=== PATIENT | female | born 1970 | race Caucasian/White ===

== ENCOUNTER 2016-12-14 11:50 | Inpatient (IN) | payer BC ==
--- NOTE | ~2016-12-14 | OR ---
Unit #: [id number] #: [id number] Patient: JUANCARLOS OLEA [id number] [facility]. [place], [place] [address] [id number] MR#: [id number] NAME: JUANCARLOS OLEA ROOM: 475 Date of Procedure: 12/14/2016 Admission Date: 12/14/2016 Surgeon: Quinten Solorio Jr., M.D. : 1970 Attending Physician: Silver Tolliver M.D. Primary Care Physician: Carri Arellano OPERATIVE REPORT INDICATION FOR PROCEDURE The patient is a 46-year-old white female, who developed a severe mid abdominal pain secondary to incarcerated ventral hernia yesterday. She has had a related small-bowel obstruction with it, has an obvious small bowel loop up within it on CT and she is brought to the operating room at this time for reduction and repair, possibly laparoscopic versus open. The patient has had a previous lap band. PREOPERATIVE DIAGNOSES Incarcerated ventral hernia with small-bowel obstruction. POSTOPERATIVE DIAGNOSES Incarcerated ventral hernia with small-bowel obstruction, noting several adhesive bands. ANESTHESIA General with endotracheal intubation and 0.5% Marcaine with epinephrine locally at the port sites. [employer] APPRENTICE Donte Montanez M.D. PROCEDURES PERFORMED Diagnostic laparoscopy, laparoscopic lysis of adhesions, laparoscopic reduction of ventral incarcerated hernia with ventral hernia repair using a 6 x 4 inch Ventralight mesh. Absorbable tacks were used. DESCRIPTION OF PROCEDURE The patient was positioned in supine position. After being anesthetized and intubated, she was prepped and draped in routine fashion for laparoscopic ventral hernia repair. A small incision was made in the left lateral abdominal wall area. A 5-mm Optiview was introduced in the abdomen followed by the camera. There was no evidence of any injury related to introduction of the Optiview. Brief intra-abdominal exploration was carried out after the abdomen was inflated with CO2 gas. The patient was noted to have some adhesions. The lap band tubing was noted and there was an incarcerated hernia with loop of small bowel as well as omentum up within it. A 5-mm port was placed in the left lower quadrant abdominal wall area and a 5 mm in the right upper quadrant abdominal wall area laterally and 11-mm port in the right lower quadrant abdominal wall area. Using grasping clamps, the hernia was gently reduced with the bowel loop being brought out first followed by the omentum with Unit #: [id number] #: [id number] Patient: YOUNG,JUANCARLOS no evidence of any injury to the bowel. There was no evidence of any necrosis or ischemia. After the hernia was reduced and all tissue was removed from the hernia sac itself, the abdominal wall was checked, there was no evidence of any need to take down the falciform ligament. A 6 x 4 inch mesh was used to destin the outside of the abdomen. Four small incisions were made 1 mm in length for the placement of the graft and the graft was then tacked in 4 corners with Vicryl sutures soaked in antibiotic solution, and then rolled up and placed intraabdominal, brought up against the anterior abdominal wall using the Endo Close needle. Once this was in place, it was secured with SecureStrap all the way around with no evidence of any problems. The stitches holding the graft up were then lysed. Hemostasis was checked for and noted to be adequate with no evidence of any ongoing bleeding, minimal amount of blood within the abdomen. After checking again noting good placement of the graft with good security of it against the abdominal wall, the CO2 was expressed from the abdomen. The fascia in the larger port site was approximated with the neoClose technique and the port sites were then injected with 0.5% Marcaine with epinephrine locally. Ports removed. There was no evidence of any bleeding from the port sites. The wounds were irrigated. After hemostasis achieved with Bovie cautery, skin edges were approximated with stainless-steel skin clips and skin stapling device. Sterile dressings were applied externally. Estimated blood loss less than 100 mL. The patient received less than 1500 mL crystalloid solution during the procedure. Sponges and instrument counts were correct x3. No drains used. No complications. The patient was taken to the recovery room with stable vital signs in satisfactory condition. Dictated by... Quinten Solorio Jr., M.D. JMB/jim TD: 12/14/2016 22:17 JOB #: [id number] OPERATIVE REPORT Page 1 of 1 X Quinten Solorio MD X PROCEDURE OPERATIVE NOTE
--- NOTE | ~2016-12-14 | HP ---
Unit #: [id number] #: [id number] Patient: JUANCARLOS OLEA [id number] [facility]. [place], [place] [address] [id number] MR#: [id number] NAME: JUANCARLOS OLEA ROOM: [facility] Age: 46 Sex: F Admission Date: 12/14/2016 : 1970 Attending Physician: Silver Tolliver M.D. Primary Care Physician: Carri Arellano HISTORY AND PHYSICAL CHIEF COMPLAINT Nausea with abdominal pain. HISTORY OF PRESENT ILLNESS The patient is a 46-year-old white female who is in normal good health up until yesterday, when at home she developed crampy abdominal pain with severe pain in the area of her umbilical hernia. She was noted to have a knot in this area that was tender and she presented to the emergency room in her hometown. She has had a past history of having a lap band in 08/[address] Melendez. She has had no fever or chills and no other specific symptoms, except for the pain and nausea. She was seen in the emergency room in her hometown and CT revealed evidence of small bowel obstruction with an incarcerated umbilical hernia. According to her, she has had an umbilical hernia for at least several years. PAST MEDICAL HISTORY SERIOUS ILLNESSES: She has had a history of sleep apnea, hypertension, diabetes, which is borderline, hyperlipidemia, anxiety, depression, and panic attacks and back problems with back pain. PAST SURGICAL HISTORY She has had a hysterectomy, tonsillectomy and D and C. She has had no apparently problems related to her surgery. MEDICATIONS She is on Valium, Zoloft, Estrace, ibuprofen, Claritin, bariatric vitamin. ALLERGIES Hydrocodone, states this causes itching with a rash. TRANSFUSIONS None in the past. FAMILY HISTORY Noncontributory. SOCIAL HISTORY The patient is , lives at home with her family. Has a normal good appetite. No recent weight change. He is a nonsmoker and nondrinker. Immunizations are up-to-date. REVIEW OF SYSTEMS Twelve system review has been performed, which is nonremarkable except for those noted in the present illness. Unit #: [id number] #: [id number] Patient: JUANCARLOS OLEA PHYSICAL EXAMINATION VITAL SIGNS: Temperature on admission, the patient is afebrile. Vital signs are normal. Pulses 74. GENERAL DESCRIPTION: Patient is a well developed, well nourished, 46-year-old white female in no acute distress. HEENT: Not remarkable. NECK: Supple. CHEST: There is equal bilateral expansion with bilateral equal breath sounds. LUNGS: Clear bilaterally. HEART: A regular rhythm without murmurs or gallops. There is no evidence of cardiomegaly clinically. ABDOMEN: Soft. There is an obvious incarcerated umbilical hernia, which is moderately tender. No palpable masses. Otherwise no organomegaly. No ascites and no other hernias except for the hernia in the umbilical area. EXTREMITIES: Will full range of motion without limitation. There is no evidence of peripheral edema. BACK: There is no CVA tenderness. NEUROLOGIC: Grossly intact. IMPRESSION Patient has an incarcerated ventral hernia, probably umbilical with small bowel obstruction related to it. No evidence of any necrotic small bowel. Plan will be to go head with a diagnostic laparoscopy, laparoscopic reduction and hernia possible and laparoscopic ventral hernia repair versus open. The patient understands the procedure including the risks, including that of recurrence, infection, intra-abdominal organ injury, bleeding and consents. Dictated by Quinten Solorio Jr., MThiago. PAUL/marco TD: 12/14/2016 12:33 JOB #: [id number] HISTORY AND PHYSICAL Page 1 of 1 X Quinten Solorio MD X HISTORY AND PHYSICAL
--- NOTE | ~2016-12-14 | DS ---
Unit #: [id number] #: [id number] Patient: JUANCARLOS OLEA [id number] [facility]. [place], [place] [address] [id number] I MR#: [id number] NAME: JUANCARLOS OLEA ROOM: [facility] Age: 46 Sex: F Admission Date: 12/14/2016 : 1970 Discharge Date: 12/16/2016 Attending Physician: Silver Tolliver M.D. Primary Care Physician: Carri Arellano DISCHARGE SUMMARY ADMITTING AND FINAL DIAGNOSIS Incarcerated ventral hernia with small bowel obstruction. SECONDARY DIAGNOSIS Status post lap band. OPERATIONS ON THIS ADMISSION Laparoscopic reduction and hernia repair of her ventral hernia. BRIEF SUMMARY The patient is a 46-year-old white female who underwent lap band surgery approximately three to four months ago. She developed severe abdominal pain with nausea, vomiting and an incarcerated hernia just prior to coming to the emergency room and CT scan revealed evidence of small bowel obstruction from a hernia. On examination, she was noted to have a firm incarcerated ventral hernia near the umbilical region. Laboratory values are basically normal. HOSPITAL COURSE The patient was taken to the operating room and underwent reduction and repair of her ventral hernia. Postop, the first 24 hours she had significant pain requiring IV pain meds but now this is improved. She is presently just under two days postop. She is ambulating well, tolerating a regular diet. No nausea, no vomiting and is ready for discharge in satisfactory condition. The plan will be to discharge the patient home. She will be on normal activity except for no heavy lifting more than 5-10 pounds. She will be on a regular home diet. She will be given Percocet 10 mg/325, one or two p.o. q.4-6 hours p.r.n. pain and be keeping her wounds clean and dry and calling the office for her followup appointment in approximately ten days. She will be resuming her home medications. Dictated by... Quinten Solorio Jr., M.D. PAUL/ryan TD: 12/19/2016 06:45 JOB #: [id number] Unit #: [id number] #: [id number] Patient: JUANCARLOS OLEA DISCHARGE SUMMARY Page 1 of 1 X Quinten Solorio MD DISCHARGE SUMMARY
[~2016-12-14 11:50] MED LIST: B-1100 MG PO; BARIATRIC VITAMIN PO; CLARITIN10 M3 PO; DIAZEPAM PO; ESTRACE2 MG PO; IBUPROFEN800 MG PO; METFORMIN HCL500 M1 PO; OMEGA-3 ACID ETH1 GM PO; VITAMIN E400 UNI2 PO; ZOLOFT PO
[2016-12-15 04:33] LABS: BASOPHIL% 0.3 % (0-2.5); DIFF IND NO; EOSINOPHIL# 0.1 X10e3 (0-0.7); EOSINOPHIL% 0.7 % (0.0-7.0); HEMATOCRIT 47.1 % (35.0-45.0); HEMOGLOBIN 15.1 gm/dL (12.0-16.0); LYMPHOCYTE# 3.2 X10e3 (1.0-3.5); LYMPHOCYTE% 28.3 % (17.0-45.0); MEAN CORPUSCULAR HEMOGLOBIN 29.8 PG (28-34); MEAN CORPUSCULAR HGB CONC 32.1 g/dL (30-36); MEAN PLATELET VOLUME 8.8 FL (6.5-11.5); MONOCYTE# 0.8 X10e3 (0-1.0); NEUTROPHIL# 7.2 X10e3 (1.5-7.1); NEUTROPHIL% 63.7 % (40-75); PLATELET COUNT 227 X10e3 (140-420); RED BLOOD COUNT 5.06 X10e (3.90-5.30); RED CELL DISTRIBUTION WIDTH 14.6 % (11.0-15.5); WHITE BLOOD COUNT 11.3 X10e3 (4.0-10.5)
[2016-12-16 03:42] LABS: HEMATOCRIT 42.8 % (35.0-45.0); MEAN CELL VOLUME 91.9 FL (83-96); MEAN CORPUSCULAR HEMOGLOBIN 30.1 PG (28-34); MEAN CORPUSCULAR HGB CONC 32.8 g/dL (30-36); MEAN PLATELET VOLUME 8.9 FL (6.5-11.5); RED BLOOD COUNT 4.66 X10e (3.90-5.30); RED CELL DISTRIBUTION WIDTH 14.2 % (11.0-15.5); WHITE BLOOD COUNT 9.4 X10e3 (4.0-10.5)
[2016-12-16] MEDS ORDERED: PERCOCET10 PO (07:45)
== END 2016-12-16 08:51 | disposition home or self-care (01) | DRG 355 ==
LOC: C4C 11:50
PROVIDERS: Surgery
PROC: 0WUF4JZ Supplement Abdominal Wall with Synthetic Substitute, Percutaneous Endoscopic Approach (ICD-10-PCS; principal; 2016-12-14 13:30)
DX: K43.6 Other and unspecified ventral hernia with obstruction, without gangrene (principal); I10 Essential (primary) hypertension; E11.9 Type 2 diabetes mellitus without complications; E78.5 Hyperlipidemia, unspecified; G47.30 Sleep apnea, unspecified; F41.9 Anxiety disorder, unspecified; F32.9 Major depressive disorder, single episode, unspecified; F41.0 Panic disorder [episodic paroxysmal anxiety]; M54.9 Dorsalgia, unspecified; Z79.899 Other long term (current) drug therapy; Z98.84 Bariatric surgery status
CPT/HCPCS: 82947; 85025; 85027; C1781; J0330; J2250; J2270; J2405; J2543; J2710; J3010